=== PATIENT | male | born 1985 | race Two or more races ===

== ENCOUNTER 2017-07-13 21:56 | Emergency (ER) | payer MEDICAID ==
[~2017-07-13] VITALS: Ht 170.2 cm; Wt 81.6 kg
--- NOTE | 2017-07-13 22:17 | NUR ---
PT AMBULATORY TO ER BED 3 C/O RIGHT ANKLE PAIN S/P HITTING ANKLE ON METAL. PT AOX3 RR EVEN AND UNLABORED. NO SOB NOTED. NAD NOTED. NO NVD AT THIS TIME. PT GOWNED AND PLACED ON MONTIOR WAITING FOR MD LEY.
--- NOTE | 2017-07-13 22:28 | NUR ---
PER PT STATES HE IS UP TO DATE WITH THIS T-DAP. DR. SMITH MADE AWARE.
[2017-07-13] MEDS ORDERED: TDAP [DIPH/PERTUSSIS/TET] 0.5 ML VIAL IM ONE (22:30)
--- NOTE | 2017-07-13 22:42 | NUR ---
XRAY AT BEDSIDE FOR RIGHT ANKLE
--- NOTE | 2017-07-13 23:42 | NUR ---
CALLED [facility], PER LABORATORY COURIER ANKLE XRAY IS CURRENTLY BEING READ BY RADIOLOGIST
--- NOTE | 2017-07-13 23:51 | NUR ---
Patient discharged to home in stable condition. Written and verbal after care instructions given. Patient verbalizes understanding of instruction. pt ambulatory with a steady gait
[2017-07-13 23:52] VITALS: BP 126/76
== END 2017-07-13 23:52 | disposition home or self-care (01) ==
LOC: ER 22:00
DX: S93.401A Sprain of unspecified ligament of right ankle, initial encounter (principal); W22.8XXA Striking against or struck by other objects, initial encounter; Y93.89 Activity, other specified; Y92.89 Other specified places as the place of occurrence of the external cause; Y99.0 Civilian activity done for income or pay
CPT/HCPCS: 73610; 99284; A4606; A6402 ×2; Z7610